=== PATIENT | female | born 1945 | race Caucasian/White ===

== ENCOUNTER → 2023-08-01 | Emergency (ER) | payer OTHER ==
[~2023-08-01] MED LIST: TDAP (DIPHTH,PERTUSS(ACELL),TET VAC) 0.5 ML VIAL IMVAC ONE
--- NOTE | 2023-08-01 07:29 | EDPHYS ---
Physician Documentation [facility] Name: Solange Salter Age: 78 yrs Sex: Female : 1945 Arrival Date: 08/01/2023 Time: 06:44 Bed 7 Private MD: ED Physician Martin Sanchez HPI: 08/01 07:25 This 78 yrs old Female presents to ER via Ambulatory with complaints of Fall Injury, rn Laceration To Leg. 07:26 The patient has a laceration related to: doing yard work, occurred at home, and there rn are no complicating factors. The laceration(s) is(are) located on the left leg. Onset: The symptoms/episode began/occurred yesterday. The patient has not experienced similar symptoms in the past. Patient reports doing yard work yesterday, picking up limbs, got poked and cut by one of the limbs. No blood thinners. Happened yesterday at around 5 PM. Mild bleeding. Has been cleaning it and putting peroxide in it. Unknown last tetanus. Daughter wanted her to come in to get checked. Historical: - Allergies: 07:05 No Known Allergies; ha1 - PMHx: 07:05 Hypothyroidism; ha1 - Immunization history:: Adult Immunizations up to date. - Social history:: Smoking status: Patient denies any tobacco usage or history of. - Family history:: not pertinent. - Hospitalizations: : No recent hospitalization is reported. ROS: 07:26 Constitutional: Negative for fever, chills, and weight loss, MS/Extremity: Positive for rn laceration to left leg Exam: 07:26 Constitutional: This is a well developed, well nourished patient who is awake, alert, rn and in no acute distress. MS/ Extremity: Pulses equal, no cyanosis. Neurovascular intact. Full, normal range of motion. Equal circumference. Left distal extremity, lateral pretibial region with skin avulsion and missing tissue. Wound is clean, no active bleeding, no foreign body, but unable to be pulled together appropriately due to missing tissue. Vital Signs: 06:48 BP 138 / 75; Pulse 93; Resp 17 S; Temp 97.7; Pulse Ox 98% ; Weight 68.49 kg; Height 5 ha1 ft. 5 in. ; 07:42 BP 109 / 58; Pulse 84; Resp 16; Pulse Ox 99% ; ko1 06:48 Body Mass Index 25.13 (68.49 kg, 165.1 cm) ha1 MDM: 06:59 Patient medically screened. rn 07:26 Differential diagnosis: superficial laceration, Skin avulsion, skin tear. Data rn reviewed: vital signs, nurses notes, and as a result, I will discharge patient. Counseling: I had a detailed discussion with the patient and/or guardian regarding the historical points, exam findings, and any diagnostic results supporting the discharge/admit diagnosis, the need for outpatient follow up, to return to the emergency department if symptoms worsen or persist or if there are any questions or concerns that arise at home. Special discussion: I discussed with the patient/guardian in detail that at this point there is no indication for admission to the hospital. It is understood, however, that if the symptoms persist or worsen the patient needs to return immediately for re-evaluation. 07:26 ED course: Wound not able to be approximated due to missing tissue. No foreign body. No rn evidence of infection. Will discharge home with antibiotics. Given tetanus here. Return precautions given and understood.. 08/01 07:05 Order name: Wound Care; Complete Time: 07:29 rn 08/01 07:05 Order name: Wound dressing; Complete Time: 07:29 rn Administered Medications: 07:17 Drug: Tetanus Toxoid,Adsorbed IM 0.5 ml IM once; Provide Vaccine Information Statement rs5 (VIS). 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: [employer]; Exp: FriNov 19 2024; Lot #: [id number]; Series: 1 of 1; Patient Consent: Obtained; Date/Time: ; Source Name: Solange Salter; Source Relationship: Self; Address Information: [address] [place] [address]; ; Education: Provided; VIS Presented Date: ; VIS Publication: Tetanus/Diphtheria (Td) Vaccine VIS 10/08/2016 (historic)} Route: IM; Site: left deltoid; Disposition Summary: 08/01/23 07:29 Discharge Ordered Notes: Location: Home rn Problem: new rn Symptoms: have improved rn Condition: Stable rn Diagnosis - Laceration without foreign body, left lower leg rn Followup: rn - With: Private Physician - When: As needed - Reason: Recheck today's complaints, Re-evaluation by your physician Discharge Instructions: - Discharge Summary Sheet rn - How to Change Your Wound Dressing rn - Laceration Care, Adult rn - Nonsutured Laceration Care rn Forms: - Medication Reconciliation Form rn - Thank You Letter rn - Antibiotic frit burner - Prescription Opioid Use rn - Patient Portal Instructions rn - Leadership Thank You Letter rn Prescriptions: - Cephalexin 500 mg Oral Capsule - take 1 capsule ORAL route every 12 hours for 10 days; 20 capsule; Refills: 0, rn Product Selection Permitted Signatures: Martin Sanchez MD MD rn Ayala, Heidy, RN RN ha1 Ishan Suarez RN RN rs5
--- NOTE | 2023-08-01 07:29 | ER ---
Nurse's Notes [facility] Name: Solange Salter Age: 78 yrs Sex: Female : 1945 Arrival Date: 08/01/2023 Time: 06:44 Bed 7 Private MD: Diagnosis: Laceration without foreign body, left lower leg Presentation: 08/01 06:48 Chief complaint: Patient states: yesterday I fell and during the fall I cut my leg. ha1 06:48 Coronavirus screen: Vaccine status: Patient reports receiving the 2nd dose of the covid ha1 vaccine. [employer]. Ebola Screen: No symptoms or risks identified at this time. Initial Sepsis Screen: Does the patient meet any 2 criteria? No. Patient's initial sepsis screen is negative. Does the patient have a suspected source of infection? No. Patient's initial sepsis screen is negative. Risk Assessment: Do you want to hurt yourself or someone else? Patient reports no desire to harm self or others. Onset of symptoms was August 01, 2023. 06:48 Method Of Arrival: Ambulatory 1 06:48 Acuity: ELLIS 4 ha1 Triage Assessment: 06:48 General: Appears comfortable, Behavior is calm, cooperative. Pain: Complains of pain in ha1 medial aspect of left calf Pain does not radiate. Pain currently is 7 out of 10 on a pain scale. Quality of pain is described as burning, Pain began suddenly. Neuro: Level of Consciousness is awake, alert, obeys commands, Oriented to person, place, time, situation. Cardiovascular: Capillary refill < 3 seconds Patient's skin is warm and dry. Respiratory: Airway is patent Respiratory effort is even, unlabored, Respiratory pattern is regular, symmetrical. GI: No signs and/or symptoms were reported involving the gastrointestinal system. : No signs and/or symptoms were reported regarding the genitourinary system. Derm: Skin is pink, warm \T\ dry. Musculoskeletal: Circulation, motion, and sensation intact. Injury Description: Laceration sustained to medial aspect of left calf is clean, 2.6 to 7.5 cm long, was sustained 12-24 hours ago. a small amount of bleeding noted at this time. A dressing was applied. 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 - Social history:: Smoking status: Patient denies any tobacco usage or history of. - Family history:: not pertinent. - Hospitalizations: : No recent hospitalization is reported. Screenin:48 Abuse screen: Denies threats or abuse. Denies injuries from another. Nutritional ha1 screening: No deficits noted. Tuberculosis screening: No symptoms or risk factors identified. 07:43 [facility] ED Fall Risk Assessment (Adult) History of falling in the last 3 months, ko1 including since admission Yes- single mechanical fall (1 pt) Confusion or Disorientation No (0 pts) Intoxicated or Sedated No (0 pts) Impaired Gait No (0 pts) Mobility Assist Device Used No (0 pt) Altered Elimination No (0 pt) Score/Fall Risk Level 0 - 2 = Low Risk Oriented to surroundings, Maintained a safe environment, Educated pt \T\ family on fall prevention, incl call for assistance when getting out of bed, Assessed \T\ reinforced patient's understanding of fall precautions, Provided non-skid footwear, Hourly rounding (assess needs \T\ fall precautionary measures) done, Used ambulatory aids as needed (educated on \T\ assisted with). Assessment: 07:43 General: Appears in no apparent distress. comfortable, Behavior is calm, cooperative, ko1 appropriate for age. Injury Description: Laceration sustained to medial aspect of left calf a small amount of bleeding noted at this time. A dressing was applied. Vital Signs: 06:48 BP 138 / 75; Pulse 93; Resp 17 S; Temp 97.7; Pulse Ox 98% ; Weight 68.49 kg; Height 5 ha1 ft. 5 in. ; 07:42 BP 109 / 58; Pulse 84; Resp 16; Pulse Ox 99% ; ko1 06:48 Body Mass Index 25.13 (68.49 kg, 165.1 cm) ha1 ED Course: 06:47 Patient arrived in ED. jj6 06:48 Patient has correct armband on for positive identification. Bed in low position. Call ha1 light in reach. Side rails up X 1. 06:59 Martin Sanchez MD is Attending Physician. rn 07:05 Triage completed. ha1 07:17 Ishan Suarez, RN is Primary Nurse. rs5 07:43 Provided Education on: wound care. Pulse ox on. NIBP on. Door closed. Noise minimized. ko1 07:43 No provider procedures requiring assistance completed. Patient did not have IV access ko1 during this emergency room visit. Dressings: Kerlix X 1; medial aspect of left calf 4X4s X 2; medial aspect of left calf xeroform. 07:46 Arm band placed on right wrist. ko1 Administered Medications: 07:17 Drug: Tetanus Toxoid,Adsorbed IM 0.5 ml IM once; Provide Vaccine Information Statement rs5 (VIS). 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 Questions and/or concerns ko1 addressed. VIS edition date: August 01, 2023. Outcome: 07:29 Discharge ordered by . rn 07:43 Discharged to home ambulatory, ko1 07:43 Condition: stable 07:43 Discharge instructions given to patient, Instructed on discharge instructions, follow up and referral plans. medication usage, wound care, Demonstrated understanding of instructions, follow-up care, medications, wound care, Prescriptions given X 1, 07:46 Patient left the ED. ko1 Signatures: Martin Sanchez MD MD rn Fani Oconnor jj6 Talisha Wyatt RN RN ha1 Yazmin Combs RN RN ko1 Ishan Suarez RN RN rs5
[2023-08-01 08:02] VITALS: BP 109/58; TEMP 97.7; O2SAT 99
== END ==
LOC: ER 06:44
DX: S81.812A Laceration without foreign body, left lower leg, initial encounter (principal); Z23 Encounter for immunization
CPT/HCPCS: 90471

== ENCOUNTER 2024-02-28 07:24 | Emergency (ER) | payer OTHER ==
[2024-02-28 08:37] LABS: Specific Gravity 1.025 (1.005-1.030); Sqamous Epithelial <5 /HPF (None Seen); Urine Bacteria >50 /HPF (<20); Urine Bilirubin NEGATIVE (Negative); Urine Blood 2+ (Negative); Urine Clarity Extremely Turbid (Clear); Urine Color Yellow (Yellow); Urine Culture Reflex Order REFLEXED; Urine Glucose NEGATIVE (Negative); Urine Ketones NEGATIVE (Negative); Urine Micro Reflex YN NO BILL MICROSCOPIC; Urine Mucus Slight /HPF (None Seen); Urine Nitrite 1+ (Negative); Urine Protein 1+ (Negative); Urine RBC 21-50 /HPF (None Seen); Urine Urobilinogen Normal (Normal); Urine WBC >50 /HPF (<5); Urine WBC Clump Rare /HPF (None Seen)
[2024-02-28 08:42] LABS: SARS-CoV-2 Antigen CONTROL BLUE LINE VIS/BG OK; SARS-CoV-2 Antigen Rapid Res Negative (Negative)
--- NOTE | 2024-02-28 09:37 | RAD REPORT ---
EXAM DESCRIPTION: Ivet Rubio (2 Views)02/28/2024 8:51 am CLINICAL HISTORY: fever COMPARISON: None FINDINGS: The lungs appear clear of acute infiltrate. The heart is mildly enlarged IMPRESSION: No acute abnormalities displayed
--- NOTE | 2024-02-28 09:49 | ER ---
Nurse's Notes [facility] Name: Solange Salter Age: 78 yrs Sex: Female : 1945 Arrival Date: 02/28/2024 Time: 07:24 Bed 15 Private MD: Diagnosis: UTI/ Urinary tract infection, site not specified Presentation: 02/27 07:44 Chief complaint: Body aches, headache, chills, and fever x 1 week. ON ZPack Day 3. hb Coronavirus screen: Client presents with at least one sign or symptom that may indicate coronavirus-19. Provider contacted for isolation considerations. Ebola Screen: No symptoms or risks identified at this time. Initial Sepsis Screen: Does the patient meet any 2 criteria? No. Patient's initial sepsis screen is negative. Does the patient have a suspected source of infection? No. Patient's initial sepsis screen is negative. Risk Assessment: Do you want to hurt yourself or someone else? Patient reports no desire to harm self or others. Onset of symptoms was February 22, 2024. 07:44 Method Of Arrival: Ambulatory 07:44 Acuity: ELLIS 3 hb Historical: - Allergies: 07:49 No Known Allergies; hb - PMHx: 07:49 Hypothyroidism; hb - Immunization history:: Adult Immunizations up to date. - Infectious Disease History:: Denies. - Social history:: Smoking status: Patient denies any tobacco usage or history of. - Family history:: not pertinent. Screenin:03 [facility] ED Fall Risk Assessment (Adult) History of falling in the last 3 months, db including since admission No falls in past 3 months (0 pts) Confusion or Disorientation No (0 pts) Intoxicated or Sedated No (0 pts) Impaired Gait No (0 pts) Mobility Assist Device Used No (0 pt) Altered Elimination No (0 pt) Score/Fall Risk Level 0 - 2 = Low Risk Oriented to surroundings, Maintained a safe environment. Abuse screen: Denies threats or abuse. Denies injuries from another. Nutritional screening: No deficits noted. Tuberculosis screening: No symptoms or risk factors identified. Assessment: 07:45 Reassessment: Patient appears in no apparent distress at this time. Patient and/or db family updated on plan of care and expected duration. Pain level reassessed. Patient is alert, oriented x 3, equal unlabored respirations, skin warm/dry/pink. General: Appears in no apparent distress. comfortable, Behavior is calm, cooperative. 10:03 Reassessment: Patient appears in no apparent distress at this time. Patient and/or db family updated on plan of care and expected duration. Pain level reassessed. Patient is alert, oriented x 3, equal unlabored respirations, skin warm/dry/pink. General: Appears in no apparent distress. comfortable, Behavior is calm, cooperative. Pain:. Vital Signs: 07:44 BP 157 / 64; Pulse 92; Resp 15; Temp 97.8(O); Pulse Ox 98% on R/A; Weight 67.59 kg; hb Height 5 ft. 7 in. ; Pain 3/10; 09:50 BP 115 / 65; Pulse 81; Resp 16; Temp 97.9; Pulse Ox 97% on R/A; db 07:44 Body Mass Index 23.34 (67.59 kg, 170.18 cm) hb 07:44 Pain Scale: Adult hb ED Course: 07:30 Patient arrived in ED. mg5 07:34 Jabari Jack MD is Attending Physician. rt 07:45 Tamara Perez, KITTY is Primary Nurse. db 07:49 Triage completed. hb 07:49 Arm band placed on. hb 08:12 COVID swab sent to lab. Flu and/or RSV swab sent to lab. db 08:52 Chest Pa And Lat (2 Views) XRAY In Process Unspecified. EDMS 10:03 Bed in low position. Call light in reach. Side rails up X 1. Provided Education on: db DISCHARGE AND FOLLOWUP. Pulse ox on. NIBP on. Warm blanket given. 10:03 No provider procedures requiring assistance completed. Patient did not have IV access db during this emergency room visit. Administered Medications: 08:08 CANCELLED (Patient Refused): influenza virus vaccine0.5 ml IM once; Provide the Vaccine rt Information Statement (VIS). Medication: 10:03 VIS not applicable for this client. db Outcome: 09:48 Discharge ordered by . rt 10:03 Discharged to home ambulatory, db 10:03 Condition: stable 10:03 Discharge instructions given to patient, Instructed on discharge instructions, follow up and referral plans. Prescriptions given X 1, 10:05 Patient left the ED. db Signatures: Dispatcher MedHoKaty Camara, RN RN hb Tamara Perez RN RN db Jabari Jack MD MD rt Yenifer Greenberg mg5
--- NOTE | 2024-02-28 09:49 | EDPHYS ---
Physician Documentation [facility] Name: Solange Salter Age: 78 yrs Sex: Female : 1945 Arrival Date: 02/28/2024 Time: 07:24 Bed 15 Private MD: ED Physician Jabari Jack HPI: 02/27 10:13 This 78 yrs old Female presents to ER via Ambulatory with complaints of Flu Symptoms. rt 10:13 Patient presents to the ED with 1 week of fever, chills, generalized malaise. Patient rt took a home COVID test that was negative. Was started on a Z-Lupillo about 3 days ago. Reports no relief of symptoms. Denies other acute complaints at this time, symptoms are moderate in severity, no other aggravating or alleviating factors.. Historical: - Allergies: 07:49 No Known Allergies; hb - PMHx: :49 Hypothyroidism; hb - Immunization history:: Adult Immunizations up to date. - Infectious Disease History:: Denies. - Social history:: Smoking status: Patient denies any tobacco usage or history of. - Family history:: not pertinent. ROS: 10:13 ENT: Negative for injury, pain, and discharge, Cardiovascular: Negative for chest pain, rt palpitations, and edema, Respiratory: Negative for shortness of breath, cough, wheezing, and pleuritic chest pain, Abdomen/GI: Negative for abdominal pain, nausea, vomiting, diarrhea, and constipation, Skin: Negative for injury, rash, and discoloration, Neuro: Negative for headache, weakness, numbness, tingling, and seizure, 10:13 Constitutional: Positive for body aches, fever, malaise, Exam: 10:13 Constitutional: This is a well developed, well nourished patient who is awake, alert, rt and in no acute distress. Head/Face: Normocephalic, atraumatic. Chest/axilla: Normal chest wall appearance and motion. Nontender with no deformity. No lesions are appreciated. Cardiovascular: Regular rate and rhythm with a normal S1 and S2. No gallops, murmurs, or rubs. Normal PMI, no JVD. No pulse deficits. Respiratory: Lungs have equal breath sounds bilaterally, clear to auscultation and percussion. No rales, rhonchi or wheezes noted. No increased work of breathing, no retractions or nasal flaring. Abdomen/GI: Soft, non-tender, with normal bowel sounds. No distension or tympany. No guarding or rebound. No evidence of tenderness throughout. Skin: Warm, dry with normal turgor. Normal color with no rashes, no lesions, and no evidence of cellulitis. MS/ Extremity: Pulses equal, no cyanosis. Neurovascular intact. Full, normal range of motion. Neuro: Awake and alert, GCS 15, oriented to person, place, time, and situation. Cranial nerves II-XII grossly intact. Motor strength 5/5 in all extremities. Sensory grossly intact. Cerebellar exam normal. Normal gait. Vital Signs: 07:44 BP 157 / 64; Pulse 92; Resp 15; Temp 97.8(O); Pulse Ox 98% on R/A; Weight 67.59 kg; hb Height 5 ft. 7 in. ; Pain 3/10; 09:50 BP 115 / 65; Pulse 81; Resp 16; Temp 97.9; Pulse Ox 97% on R/A; db 07:44 Body Mass Index 23.34 (67.59 kg, 170.18 cm) hb 07:44 Pain Scale: Adult hb MDM: 07:48 Patient medically screened. rt 10:13 Differential Diagnosis Viral syndrome, flu, COVID, UTI. Data reviewed: vital signs, lab rt test result(s), radiologic studies. Independent interpretation of the following test(s) in the Emergency Department X-Ray: My interpretation is No infiltrate seen on interpretation of x-ray images. Test considered but Not performed: Other Details Patient well-appearing,, unremarkable vital signs, only apparent simple cystitis, labs not dictated. Stable for outpatient care.. Counseling: I had a detailed discussion with the patient and/or guardian regarding the historical points, exam findings, and any diagnostic results supporting the discharge/admit diagnosis, lab results, radiology results, the need for outpatient follow up, to return to the emergency department if symptoms worsen or persist or if there are any questions or concerns that arise at home. Response to treatment: the patient's symptoms have markedly improved after treatment. 02/27 07:59 Order name: UAM; Complete Time: :40 rt 02/27 07:59 Order name: SARS RAPID; Complete Time: 09:40 rt 02/27 08:09 Order name: Influenza Screen (a \T\ B); Complete Time: 09:40 rt 02/27 08:40 Order name: Urine Culture EDMS 02/27 07:59 Order name: Chest Pa And Lat (2 Views) XRAY; Complete Time: 09:40 rt Administered Medications: 08:08 CANCELLED (Patient Refused): influenza virus vaccine0.5 ml IM once; Provide the Vaccine rt Information Statement (VIS). Disposition Summary: 02/28/24 09:48 Discharge Ordered Notes: Location: Home rt Problem: new rt Symptoms: are unchanged rt Condition: Stable rt Diagnosis - UTI/ Urinary tract infection, site not specified rt Followup: rt - With: Private Physician - When: 2 - 3 days - Reason: Discharge Instructions: - Discharge Summary Sheet rt - Urinary Tract Infection, Adult rt Forms: - Medication Reconciliation Form rt - Antibiotic Education rt - Prescription Opioid Use rt - Patient Portal Instructions rt - Leadership Thank You Letter rt Prescriptions: - cefpodoxime 200 mg Oral tablet - take 1 tablet ORAL route every 12 hours with food; 14 tablet; Refills: 0, rt Product Selection Permitted Signatures: Dispatcher [employer] EDKaty Mixon, KITTY RN Jabari Jordan MD MD rt Corrections: (The following items were deleted from the chart) 07:59 07:59 Urinalysis W/Microscopic+U.LAB.BRZ ordered. EDMD EDMS 07:59 07:59 SARS-COV-2 Antigen Rapid+I.LAB.BRZ ordered. EDMD EDMS 08:08 07:59 Influenza Virus Vaccine IM 0.5 ml IM once; Provide the Vaccine Information rt Statement (VIS). ordered. rt
[2024-02-28 10:11] VITALS: BP 115/65; TEMP 97.9; O2SAT 97
== END 2024-02-28 10:05 | disposition home or self-care (01) ==
LOC: ER 07:24
DX: N39.0 Urinary tract infection, site not specified (principal); Z11.52 Encounter for screening for COVID-19
CPT/HCPCS: 36415; 71046; 81001; 87077; 87086; 87088; 87186; 87804; 87811; 99284